=== PATIENT | female | born 1975 | race Caucasian/White ===

== ENCOUNTER 2016-08-01 19:29 | Emergency (ER) | payer OTHER ==
[~2016-08-01] VITALS: Ht 167.6 cm; Wt 109.1 kg
[~2016-08-01 19:29] MED LIST: ATOM40 PO; CITA20TA9 PO; DIVA500T52 PO; LURA40 PO; MACR100 PO; OXYB5 PO; PROP10 PO
[2016-08-01] MEDS ORDERED: HYDROCODONE/ACETAMINOPHEN 5-325 MG TABLET PO ONE (20:15)
[2016-08-01 22:15] VITALS: BP 124/72
== END 2016-08-01 23:03 | disposition home or self-care (01) ==
LOC: EMS 19:30
DX: M72.2 Plantar fascial fibromatosis (principal); F15.90 Other stimulant use, unspecified, uncomplicated; F17.210 Nicotine dependence, cigarettes, uncomplicated
CPT/HCPCS: 73700; 81025; 99284

== ENCOUNTER 2016-08-06 21:02 | Emergency (ER) | payer OTHER ==
[~2016-08-06] VITALS: Ht 167.6 cm; Wt 80.0 kg
[2016-08-06 22:11] LABS: BASOPHILS % (AUTO) 0.6 % (0.0-2.0); HEMATOCRIT 37.1 % (36-46); HEMOGLOBIN 11.9 g/dL (12.0-16.0); LYMPHOCYTES # (AUTO) 2.3 K/uL (1.0-4.8); LYMPHOCYTES % (AUTO) 40.3 % (22.0-44.0); MEAN CORPUSCULAR HEMOGLOBIN 30.6 pg (26.0-34.0); MEAN CORPUSCULAR HGB CONC 32.2 G/dL (31.0-37.0); MEAN CORPUSCULAR VOLUME 95 fL (80-100); MONOCYTES # (AUTO) 0.5 K/uL (0.1-1.0); MONOCYTES % (AUTO) 8.4 % (2.0-9.0); NEUTROPHILS # (AUTO) 2.7 K/uL (1.8-7.7); NEUTROPHILS % (AUTO) 47.7 % (40.0-70.0); PLATELET COUNT (AUTO) 260 K/uL (150-450); RED CELL DISTRIBUTION WIDTH 14.5 % (11.5-14.5); WHITE BLOOD COUNT (AUTO) 5.7 K/uL (4.5-11.0)
[2016-08-06 22:22] LABS: ANION GAP 7 mmol/L (8-16); CALCIUM, TOTAL 8.9 mg/dL (8.8-10.5); CARBON DIOXIDE 30 mmol/L (22-29); CHLORIDE 104 mmol/L (98-107); CREATININE 0.85 mg/dL (0.60-1.30); GLOMERULAR FILTR. RATE CALC > 60 mL/min (>60); POTASSIUM 4.3 mmol/L (3.5-5.1); SODIUM SERUM 141 mmol/L (136-145); UREA NITROGEN, BLOOD 10 mg/dL (7-18)
[2016-08-06 22:27] LABS: ALANINE AMINOTRANSFERASE 28 U/L (12-78); ALBUMIN 3.2 g/dL (3.4-5.0); ASPARTATE AMINOTRANSFERASE 22 U/L (15-37); BILIRUBIN,TOTAL 0.2 mg/dL (0.1-1.0); TOTAL PROTEIN, SERUM 7.5 g/dL (6.4-8.2)
[2016-08-07 00:13] LABS: APPEARANCE,URINE CLEAR (CLEAR); GLUCOSE, URINE (UA) NEGATIVE (NEGATIVE); KETONES,URINE NEGATIVE (NEGATIVE); LEUKOCYTE ESTERASE ,URINE MODERATE (NEGATIVE); OCCULT BLOOD,URINE NEGATIVE (NEGATIVE); PROTEIN,URINE NEGATIVE (NEGATIVE)
[2016-08-07 00:14] LABS: ADD UA MICROSCOPIC YES
[2016-08-07 00:35] LABS: RBC,URINE 0-2 /HPF (0-2); SQUAMOUS EPITHELIAL CELL,UR Few /LPF (None Seen)
[2016-08-07 02:28] VITALS: BP 127/73
== END 2016-08-07 02:37 | disposition home or self-care (01) ==
LOC: EMS 21:04
DX: N39.0 Urinary tract infection, site not specified (principal); F17.210 Nicotine dependence, cigarettes, uncomplicated; F19.90 Other psychoactive substance use, unspecified, uncomplicated
CPT/HCPCS: 87086; 99284

== ENCOUNTER 2016-09-05 20:53 | Emergency (ER) | payer OTHER ==
[~2016-09-05] VITALS: Ht 175.3 cm; Wt 100.0 kg
[2016-09-05] MEDS ORDERED: SODIUM CHLORIDE 0.9% 1,000 ML IV ONE (21:45)
[2016-09-05] MEDS ORDERED: HYDROmorphone 2 MG/ML SYRINGE IVP ONE (21:45)
[2016-09-05] MEDS ORDERED: ONDANSETRON HCL 4 MG/2 ML VIAL IVP ONE (21:45)
[2016-09-05] MEDS ORDERED: BARIUM SULFATE 0.1% SUSPENSION 450 ML BOTTLE PO ONE (21:45)
[2016-09-05 21:51] LABS: CREATININE 1.13 mg/dL (0.60-1.30); POTASSIUM 3.9 mmol/L (3.5-5.1)
[2016-09-05 21:52] LABS: BASOPHILS % (AUTO) 0.2 % (0.0-2.0); EOSINOPHILS % (AUTO) 2.5 % (1.0-6.0); HEMATOCRIT 38.9 % (36-46); HEMOGLOBIN 12.5 g/dL (12.0-16.0); LYMPHOCYTES # (AUTO) 2.5 K/uL (1.0-4.8); LYMPHOCYTES % (AUTO) 33.4 % (22.0-44.0); MEAN CORPUSCULAR HEMOGLOBIN 30.2 pg (26.0-34.0); MEAN CORPUSCULAR VOLUME 94 fL (80-100); MONOCYTES # (AUTO) 0.7 K/uL (0.1-1.0); MONOCYTES % (AUTO) 9.7 % (2.0-9.0); NEUTROPHILS # (AUTO) 4.1 K/uL (1.8-7.7); NEUTROPHILS % (AUTO) 54.2 % (40.0-70.0); PLATELET COUNT (AUTO) 306 K/uL (150-450); RED BLOOD CELL COUNT(AUTO) 4.13 MIL/uL (4.00-5.20); RED CELL DISTRIBUTION WIDTH 14.4 % (11.5-14.5); WHITE BLOOD COUNT (AUTO) 7.5 K/uL (4.5-11.0)
[2016-09-05 21:56] LABS: ALBUMIN 3.4 g/dL (3.4-5.0); BILIRUBIN,TOTAL 0.2 mg/dL (0.1-1.0)
[2016-09-05 22:34] LABS: APPEARANCE,URINE CLEAR (CLEAR); GLUCOSE, URINE (UA) NEGATIVE (NEGATIVE); KETONES,URINE NEGATIVE (NEGATIVE); LEUKOCYTE ESTERASE ,URINE MODERATE (NEGATIVE); OCCULT BLOOD,URINE MODERATE (NEGATIVE); PROTEIN,URINE NEGATIVE (NEGATIVE)
[2016-09-05 22:43] LABS: ADD UA MICROSCOPIC YES
[2016-09-05 22:56] LABS: SQUAMOUS EPITHELIAL CELL,UR Few /LPF (None Seen)
[2016-09-05] MEDS ORDERED: DiphenhydrAMINE HCL 50 MG/ML VIAL IVP ONE (23:00)
[2016-09-05] MEDS ORDERED: IOVERSOL 350 MG/ML 100 ML VIAL ONE (23:15)
[2016-09-05] MEDS ORDERED: SODIUM CHLORIDE 0.9% 100 ML ONE (23:16)
[2016-09-06 02:45] VITALS: BP 111/69
== END 2016-09-06 03:13 | disposition home or self-care (01) ==
LOC: EMS 20:54
DX: K29.70 Gastritis, unspecified, without bleeding (principal); F15.90 Other stimulant use, unspecified, uncomplicated; F17.210 Nicotine dependence, cigarettes, uncomplicated
CPT/HCPCS: 36415; 71010; 74177; 80053; 81001; 83690; 84484; 84703; 85025; 87086; 93005; 96361; 96374; 96375; 99285; 99406; J1170; J1200; J2405; J7030; J7050; Q9967

== ENCOUNTER 2016-10-18 20:28 | Emergency (ER) | payer OTHER ==
[~2016-10-18] VITALS: Ht 175.3 cm; Wt 113.6 kg
[~2016-10-18 20:28] MED LIST changes: -MACR100 PO
[2016-10-18] MEDS ORDERED: TAMS0.4C32 PO (20:39)
[2016-10-18] MEDS ORDERED: DIPH50 PO (20:39)
[2016-10-18] MEDS ORDERED: GABA-531 PO (20:39)
[2016-10-18] MEDS ORDERED: METOCLOPRAMIDE HCL 5 MG/ML 2 ML VIAL IVP ONE (22:30)
[2016-10-18] MEDS ORDERED: SODIUM CHLORIDE 0.9% 1,000 ML IV ONE (22:30)
[2016-10-18] MEDS ORDERED: KETOROLAC TROMETHAMINE 30 MG/ML VIAL IVP ONE (22:30)
[2016-10-18 22:46] LABS: BASOPHILS # (AUTO) 0.03 K/uL (0.00-0.20); BASOPHILS % (AUTO) 0.4 % (0.0-2.0); EOSINOPHILS # (AUTO) 0.15 K/uL (0.00-0.70); EOSINOPHILS % (AUTO) 2.25 % (1.0-6.0); HEMATOCRIT 38.6 % (36-46); HEMOGLOBIN 12.8 g/dL (12.0-16.0); LYMPHOCYTES # (AUTO) 2.2 K/uL (1.0-4.8); LYMPHOCYTES % (AUTO) 32.2 % (22.0-44.0); MEAN CORPUSCULAR HEMOGLOBIN 31.3 pg (26.0-34.0); MEAN CORPUSCULAR HGB CONC 33.2 G/dL (31.0-37.0); MEAN CORPUSCULAR VOLUME 94 fL (80-100); MONOCYTES # (AUTO) 0.6 K/uL (0.1-1.0); MONOCYTES % (AUTO) 8.6 % (2.0-9.0); NEUTROPHILS # (AUTO) 3.8 K/uL (1.8-7.7); NEUTROPHILS % (AUTO) 56.5 % (40.0-70.0); PLATELET COUNT (AUTO) 224 K/uL (150-450); RED BLOOD CELL COUNT(AUTO) 4.09 MIL/uL (4.00-5.20); RED CELL DISTRIBUTION WIDTH 14.4 % (11.5-14.5); WHITE BLOOD COUNT (AUTO) 6.7 K/uL (4.5-11.0)
[2016-10-18 22:56] LABS: ANION GAP 7 mmol/L (8-16); CALCIUM, TOTAL 8.8 mg/dL (8.8-10.5); CARBON DIOXIDE 27 mmol/L (22-29); CHLORIDE 103 mmol/L (98-107); CREATININE 0.95 mg/dL (0.60-1.30); GLOMERULAR FILTR. RATE CALC > 60 mL/min (>60); POTASSIUM 4.9 mmol/L (3.5-5.1); SODIUM SERUM 137 mmol/L (136-145); UREA NITROGEN, BLOOD 13 mg/dL (7-18)
[2016-10-18 23:02] LABS: VALPROIC ACID 49 mcg/mL (50-100)
[2016-10-18 23:09] LABS: APPEARANCE,URINE CLOUDY (CLEAR); GLUCOSE, URINE (UA) NEGATIVE (NEGATIVE); KETONES,URINE NEGATIVE (NEGATIVE); LEUKOCYTE ESTERASE ,URINE LARGE (NEGATIVE); OCCULT BLOOD,URINE TRACE (NEGATIVE); PH,URINE 7.5 (5.0-8.0); PROTEIN,URINE NEGATIVE (NEGATIVE)
[2016-10-18 23:11] LABS: ADD UA MICROSCOPIC YES
[2016-10-18 23:26] LABS: SQUAMOUS EPITHELIAL CELL,UR Many /LPF (None Seen)
[2016-10-18 23:27] LABS: RBC,URINE 0-2 /HPF (0-2)
[2016-10-18 23:43] VITALS: BP 120/77
== END 2016-10-18 23:58 | disposition home or self-care (01) ==
LOC: EMS 20:30
DX: G43.909 Migraine, unspecified, not intractable, without status migrainosus (principal); J02.9 Acute pharyngitis, unspecified; F17.210 Nicotine dependence, cigarettes, uncomplicated; Z87.442 Personal history of urinary calculi
CPT/HCPCS: 36415; 80048; 80164; 81001; 85025; 87086; 96361; 96374; 96375; 99284; 99406; J1885; J2765; J7030

== ENCOUNTER 2017-01-13 23:38 | Emergency (ER) | payer OTHER ==
[~2017-01-13] VITALS: Ht 175.3 cm; Wt 112.0 kg
[~2017-01-13 23:38] MED LIST changes: -ATOM40 PO; -CITA20TA9 PO; -OXYB5 PO; -PROP10 PO; +PROP10TA73 PO; +TAMS0.4C32 PO
[2017-01-14 00:35] LABS: BASOPHILS % (AUTO) 0.1 % (0.0-2.0); HEMATOCRIT 35.5 % (36-46); HEMOGLOBIN 11.8 g/dL (12.0-16.0); LYMPHOCYTES # (AUTO) 2.4 K/uL (1.0-4.8); LYMPHOCYTES % (AUTO) 37.3 % (22.0-44.0); MEAN CORPUSCULAR HEMOGLOBIN 31.3 pg (26.0-34.0); MEAN CORPUSCULAR HGB CONC 33.3 G/dL (31.0-37.0); MEAN CORPUSCULAR VOLUME 94 fL (80-100); MONOCYTES # (AUTO) 0.6 K/uL (0.1-1.0); MONOCYTES % (AUTO) 9.9 % (2.0-9.0); NEUTROPHILS # (AUTO) 3.3 K/uL (1.8-7.7); NEUTROPHILS % (AUTO) 50.7 % (40.0-70.0); PLATELET COUNT (AUTO) 262 K/uL (150-450); RED BLOOD CELL COUNT(AUTO) 3.77 MIL/uL (4.00-5.20); RED CELL DISTRIBUTION WIDTH 14.9 % (11.5-14.5); WHITE BLOOD COUNT (AUTO) 6.5 K/uL (4.5-11.0)
[2017-01-14 00:40] LABS: ANION GAP 6 mmol/L (8-16); CALCIUM, TOTAL 8.7 mg/dL (8.8-10.5); CARBON DIOXIDE 31 mmol/L (22-29); CHLORIDE 104 mmol/L (98-107); CREATININE 0.97 mg/dL (0.60-1.30); GLOMERULAR FILTR. RATE CALC > 60 mL/min (>60); POTASSIUM 3.8 mmol/L (3.5-5.1); SODIUM SERUM 141 mmol/L (136-145); UREA NITROGEN, BLOOD 12 mg/dL (7-18)
[2017-01-14 00:45] LABS: ALANINE AMINOTRANSFERASE 18 U/L (12-78); ALBUMIN 3.2 g/dL (3.4-5.0); ASPARTATE AMINOTRANSFERASE 14 U/L (15-37); BILIRUBIN,TOTAL 0.1 mg/dL (0.1-1.0); TOTAL PROTEIN, SERUM 7.3 g/dL (6.4-8.2)
[2017-01-14 00:54] LABS: APPEARANCE,URINE CLOUDY (CLEAR); GLUCOSE, URINE (UA) NEGATIVE (NEGATIVE); KETONES,URINE NEGATIVE (NEGATIVE); LEUKOCYTE ESTERASE ,URINE MODERATE (NEGATIVE); OCCULT BLOOD,URINE TRACE (NEGATIVE); PH,URINE 6.5 (5.0-8.0); PROTEIN,URINE NEGATIVE (NEGATIVE)
[2017-01-14 00:57] LABS: ADD UA MICROSCOPIC YES
[2017-01-14 01:31] LABS: SQUAMOUS EPITHELIAL CELL,UR Few /LPF (None Seen)
[2017-01-14 02:08] VITALS: BP 120/84
== END 2017-01-14 02:15 | disposition home or self-care (01) ==
LOC: EMS 23:39
DX: N39.0 Urinary tract infection, site not specified (principal); G43.909 Migraine, unspecified, not intractable, without status migrainosus; F17.210 Nicotine dependence, cigarettes, uncomplicated
CPT/HCPCS: 87086; 99284

== ENCOUNTER 2017-02-27 16:41 | Inpatient (IN) | payer MEDICARE, MEDICAID ==
[~2017-02-27] VITALS: Ht 175.3 cm; Wt 106.6 kg
[2017-02-27] MEDS ORDERED: SERT50TA12 PO (17:14)
[2017-02-27] MEDS ORDERED: OXYB5 PO (17:14)
[2017-02-27 17:36] LABS: BASOPHILS % (AUTO) 0.1 % (0.0-2.0); EOSINOPHILS % (AUTO) 2.3 % (1.0-6.0); LYMPHOCYTES # (AUTO) 1.7 K/uL (1.0-4.8); LYMPHOCYTES % (AUTO) 27.4 % (22.0-44.0); MEAN CORPUSCULAR HEMOGLOBIN 31.7 pg (26.0-34.0); MEAN CORPUSCULAR HGB CONC 34.1 G/dL (31.0-37.0); MEAN CORPUSCULAR VOLUME 93 fL (80-100); MONOCYTES # (AUTO) 0.5 K/uL (0.1-1.0); MONOCYTES % (AUTO) 7.4 % (2.0-9.0); NEUTROPHILS # (AUTO) 3.9 K/uL (1.8-7.7); NEUTROPHILS % (AUTO) 62.8 % (40.0-70.0); PLATELET COUNT (AUTO) 249 K/uL (150-450); RED BLOOD CELL COUNT(AUTO) 4.09 MIL/uL (4.00-5.20); RED CELL DISTRIBUTION WIDTH 14.8 % (11.5-14.5); WHITE BLOOD COUNT (AUTO) 6.2 K/uL (4.5-11.0)
[2017-02-27 18:04] LABS: ANION GAP 4 mmol/L (8-16); CALCIUM, TOTAL 9.6 mg/dL (8.8-10.5); CARBON DIOXIDE 29 mmol/L (22-29); CHLORIDE 102 mmol/L (98-107); CREATININE 1.01 mg/dL (0.60-1.30); GLOMERULAR FILTR. RATE CALC 60 mL/min (>60); POTASSIUM 4.3 mmol/L (3.5-5.1); SODIUM SERUM 135 mmol/L (136-145); UREA NITROGEN, BLOOD 13 mg/dL (7-18)
[2017-02-27 18:10] LABS: ALANINE AMINOTRANSFERASE 23 U/L (12-78); ALBUMIN 3.3 g/dL (3.4-5.0); ASPARTATE AMINOTRANSFERASE 21 U/L (15-37); BILIRUBIN,TOTAL 0.2 mg/dL (0.1-1.0); TOTAL PROTEIN, SERUM 7.5 g/dL (6.4-8.2)
[2017-02-27] MEDS ORDERED: ZOLPIDEM TARTRATE 10 MG TABLET PO PRN (18:45)
[2017-02-27] MEDS ORDERED: HALOPERIDOL 5 MG TABLET PO PRN (18:45)
[2017-02-27] MEDS ORDERED: LORazepam 2 MG TABLET PO PRN (18:45)
[2017-02-27] MEDS ORDERED: LURA80 PO (18:51)
[2017-02-27 21:12] VITALS: BP 140/90
[2017-02-28] MEDS: TAMSULOSIN HCL 0.4 MG CAPSULE PO SCH ×3 (09:00→17:00)
[2017-02-28] MEDS: OXYBUTYNIN CHLORIDE 5 MG TABLET PO SCH ×3 (09:00→17:00)
[2017-02-28] MEDS: RisperiDONE 2 MG TABLET PO SCH ×3 (09:00→17:00)
[2017-02-28] MEDS: PROPRANOLOL HCL 10 MG TABLET PO SCH ×4 (09:00→17:00)
[2017-02-28] MEDS: SERTRALINE HCL 50 MG TABLET PO SCH (10:28)
[2017-02-28] MEDS: DIVALPROEX SODIUM 500 MG ER TABLET PO SCH (20:51)
[2017-03-01] MEDS: TAMSULOSIN HCL 0.4 MG CAPSULE PO SCH ×2 (10:07→16:35)
[2017-03-01] MEDS: RisperiDONE 2 MG TABLET PO SCH ×2 (10:07→16:35)
[2017-03-01] MEDS: SERTRALINE HCL 50 MG TABLET PO SCH (10:07)
[2017-03-01] MEDS: PROPRANOLOL HCL 10 MG TABLET PO SCH ×3 (10:07→16:36)
[2017-03-01] MEDS: OXYBUTYNIN CHLORIDE 5 MG TABLET PO SCH ×2 (10:07→16:35)
[2017-03-01 10:30] VITALS: BP 106/74
[2017-03-01 17:48] VITALS: BP 121/68
[2017-03-01] MEDS: DIVALPROEX SODIUM 500 MG ER TABLET PO SCH (21:00)
[2017-03-02 09:12] VITALS: BP 117/78
[2017-03-02] MEDS: TAMSULOSIN HCL 0.4 MG CAPSULE PO SCH (09:53)
[2017-03-02] MEDS: OXYBUTYNIN CHLORIDE 5 MG TABLET PO SCH (09:53)
[2017-03-02] MEDS: PROPRANOLOL HCL 10 MG TABLET PO SCH ×2 (09:53→13:45)
[2017-03-02] MEDS: SERTRALINE HCL 50 MG TABLET PO SCH (09:53)
[2017-03-02] MEDS: RisperiDONE 2 MG TABLET PO SCH (09:53)
[2017-03-02] MEDS ORDERED: RISP2 PO (12:08)
== END 2017-03-02 15:40 | disposition home or self-care (01) | DRG 881 ==
LOC: EMS 16:43 → 3EI 19:02
PROVIDERS: ADMIT Psychiatry & Neurology Child & Adolescent Psychiatry; ATTEND Psychiatry & Neurology Child & Adolescent Psychiatry
DX: F32.9 Major depressive disorder, single episode, unspecified (principal); F43.10 Post-traumatic stress disorder, unspecified; F90.9 Attention-deficit hyperactivity disorder, unspecified type; N32.81 Overactive bladder; N39.498 Other specified urinary incontinence; S51.811A Laceration without foreign body of right forearm, initial encounter; Z86.73 Personal history of transient ischemic attack (TIA), and cerebral infarction without residual deficits; Z87.442 Personal history of urinary calculi; Z87.891 Personal history of nicotine dependence; W45.8XXA Other foreign body or object entering through skin, initial encounter; Y93.89 Activity, other specified; Y92.89 Other specified places as the place of occurrence of the external cause; Y99.8 Other external cause status
CPT/HCPCS: 99285; G0480

== ENCOUNTER 2018-01-18 21:58 | Inpatient (IN) | payer MEDICARE, MEDICAID ==
[~2018-01-18] VITALS: Ht 175.3 cm; Wt 91.8 kg
[~2018-01-18 21:58] MED LIST changes: -LURA40 PO; +OXYB5 PO; +RISP2 PO; +SERT50TA12 PO
[2018-01-18 22:57] LABS: BASOPHILS % (AUTO) 0.6 % (0.0-2.0); EOSINOPHILS % (AUTO) 3.1 % (1.0-6.0); HEMATOCRIT 35.1 % (36-46); HEMOGLOBIN 11.6 g/dL (12.0-16.0); LYMPHOCYTES % (AUTO) 42.5 % (22.0-44.0); MEAN CORPUSCULAR HEMOGLOBIN 31.2 pg (26.0-34.0); MEAN CORPUSCULAR HGB CONC 33.2 G/dL (31.0-37.0); MEAN CORPUSCULAR VOLUME 94 fL (80-100); MONOCYTES # (AUTO) 0.7 K/uL (0.1-1.0); MONOCYTES % (AUTO) 9.8 % (2.0-9.0); NEUTROPHILS # (AUTO) 3.1 K/uL (1.8-7.7); PLATELET COUNT (AUTO) 226 K/uL (150-450); RED BLOOD CELL COUNT(AUTO) 3.73 MIL/uL (4.00-5.20); RED CELL DISTRIBUTION WIDTH 14.9 % (11.5-14.5)
[2018-01-18 23:12] LABS: ANION GAP 10 mmol/L (8-16); CALCIUM, TOTAL 8.7 mg/dL (8.8-10.5); CARBON DIOXIDE 27 mmol/L (22-29); CHLORIDE 104 mmol/L (98-107); CREATININE 0.98 mg/dL (0.60-1.30); GLOMERULAR FILTR. RATE CALC > 60 mL/min (>60); GLUCOSE,RANDOM 92 mg/dL (70-110); POTASSIUM 3.8 mmol/L (3.5-5.1); SODIUM SERUM 141 mmol/L (136-145); UREA NITROGEN, BLOOD 13 mg/dL (7-18)
[2018-01-18 23:19] LABS: ALANINE AMINOTRANSFERASE 14 U/L (12-78); ALKALINE PHOSPHATASE 118 U/L (46-116); ASPARTATE AMINOTRANSFERASE 16 U/L (15-37); BILIRUBIN,TOTAL 0.2 mg/dL (0.1-1.0); TOTAL PROTEIN, SERUM 7.3 g/dL (6.4-8.2)
[2018-01-18] MEDS ORDERED: HALOPERIDOL 5 MG TABLET PO PRN (23:45)
[2018-01-18] MEDS ORDERED: ZOLPIDEM TARTRATE 10 MG TABLET PO PRN (23:45)
[2018-01-18] MEDS ORDERED: LORazepam 2 MG TABLET PO PRN (23:45)
[2018-01-19 00:57] LABS: AMPHET/METH SCREEN,URINE NEGATIVE (NEGATIVE); BARBITURATE SCREEN, URINE NEGATIVE (NEGATIVE); BENZODIAZEPINES SCREEN,URINE NEGATIVE (NEGATIVE); CANNABINOID SCREEN,URINE NEGATIVE (NEGATIVE); COCAINE SCREEN,URINE NEGATIVE (NEGATIVE); METHADONE SCREEN, URINE NEGATIVE (NEGATIVE); OPIATE SCREEN,URINE NEGATIVE (NEGATIVE)
[2018-01-19 01:04] LABS: PHENCYCLIDINE SCREEN,URINE NEGATIVE (NEGATIVE)
[2018-01-19 01:58] VITALS: BP 146/92
[2018-01-19] MEDS ORDERED: PNEUMOCOCCAL VACCINE POLYVALENT 0.5 ML VIAL [PPSV23] IM ONE (02:15)
[2018-01-19] MEDS: ARIPiprazole 10 MG TABLET PO SCH (12:37)
[2018-01-19] MEDS: SERTRALINE HCL 50 MG TABLET PO SCH (12:37)
[2018-01-19] MEDS ORDERED: ONDANSETRON HCL 4 MG TABLET PO PRN (14:30)
[2018-01-19] MEDS ORDERED: CloNIDine HCL 0.1 MG TABLET PO PRN (14:30)
[2018-01-19] MEDS ORDERED: DOCUSATE SODIUM 100 MG CAPSULE PO PRN (14:30)
[2018-01-19] MEDS ORDERED: ALBUTEROL SULFATE HFA 90 MCG/PUFF 8 GM INHALER IH PRN (14:30)
[2018-01-19] MEDS ORDERED: PETROLATUM,WHITE 71 GM JELLY TP PRN (14:30)
[2018-01-19] MEDS ORDERED: MAG HYDROX/AL HYDROX/SIMETH ES 30 ML SUSPENSION UDCUP PO PRN (14:30)
[2018-01-19] MEDS ORDERED: ACETAMINOPHEN 325 MG TABLET PO PRN (14:30)
[2018-01-19] MEDS ORDERED: NICOTINE 14 MG/24 HOUR PATCH TD PRN (14:30)
[2018-01-19] MEDS ORDERED: MAGNESIUM HYDROXIDE SUSPENSION 30 ML UDCUP PO PRN (14:30)
[2018-01-19] MEDS ORDERED: GuaiFENesin/D-METHORPHAN [SUGAR-FREE] 200-20MG/10 ML SYRUP UDCUP PO PRN (14:30)
[2018-01-19] MEDS ORDERED: LOPERAMIDE HCL 2 MG CAPSULE PO PRN (14:30)
[2018-01-19] MEDS ORDERED: IBUPROFEN 400 MG TABLET PO PRN (14:30)
[2018-01-19 17:00] VITALS: BP 143/92
[2018-01-19] MEDS: OXYBUTYNIN CHLORIDE 5 MG TABLET PO SCH (17:35)
[2018-01-19] MEDS: TAMSULOSIN HCL 0.4 MG CAPSULE PO SCH (17:35)
[2018-01-19] MEDS: PROPRANOLOL HCL 10 MG TABLET PO SCH (17:35)
[2018-01-19] MEDS: DIVALPROEX SODIUM 500 MG ER TABLET PO SCH (21:03)
[2018-01-20 08:05] VITALS: BP 150/109
[2018-01-20] MEDS: OXYBUTYNIN CHLORIDE 5 MG TABLET PO SCH ×2 (08:24→16:58)
[2018-01-20] MEDS: TAMSULOSIN HCL 0.4 MG CAPSULE PO SCH ×2 (08:24→16:59)
[2018-01-20] MEDS: SERTRALINE HCL 50 MG TABLET PO SCH (08:24)
[2018-01-20] MEDS: PROPRANOLOL HCL 10 MG TABLET PO SCH ×3 (08:24→16:59)
[2018-01-20] MEDS: ARIPiprazole 10 MG TABLET PO SCH (08:24)
[2018-01-20 10:30] VITALS: BP 114/71
[2018-01-20 17:54] VITALS: BP 152/99
[2018-01-20] MEDS: DIVALPROEX SODIUM 500 MG ER TABLET PO SCH (20:36)
[2018-01-21 08:00] VITALS: BP 156/108
[2018-01-21] MEDS: SERTRALINE HCL 50 MG TABLET PO SCH (08:31)
[2018-01-21] MEDS: OXYBUTYNIN CHLORIDE 5 MG TABLET PO SCH ×2 (08:31→17:18)
[2018-01-21] MEDS: PROPRANOLOL HCL 10 MG TABLET PO SCH ×3 (08:32→17:18)
[2018-01-21] MEDS: TAMSULOSIN HCL 0.4 MG CAPSULE PO SCH ×2 (08:32→17:18)
[2018-01-21] MEDS: ARIPiprazole 10 MG TABLET PO SCH (08:32)
[2018-01-21] MEDS: DIVALPROEX SODIUM 500 MG ER TABLET PO SCH (20:05)
[2018-01-21 21:01] VITALS: BP 140/82
[2018-01-22 08:00] VITALS: BP 123/84
[2018-01-22] MEDS: TAMSULOSIN HCL 0.4 MG CAPSULE PO SCH ×2 (08:58→16:55)
[2018-01-22] MEDS: ARIPiprazole 10 MG TABLET PO SCH (08:58)
[2018-01-22] MEDS: OXYBUTYNIN CHLORIDE 5 MG TABLET PO SCH ×2 (08:58→16:55)
[2018-01-22] MEDS: PROPRANOLOL HCL 10 MG TABLET PO SCH ×3 (08:58→16:55)
[2018-01-22] MEDS: SERTRALINE HCL 50 MG TABLET PO SCH (08:59)
[2018-01-22 13:16] VITALS: BP 102/52
[2018-01-22 16:00] VITALS: BP 125/87
[2018-01-22] MEDS: DIVALPROEX SODIUM 500 MG ER TABLET PO SCH (20:27)
[2018-01-23] MEDS: SERTRALINE HCL 50 MG TABLET PO SCH (08:49)
[2018-01-23] MEDS: PROPRANOLOL HCL 10 MG TABLET PO SCH ×3 (08:49→17:00)
[2018-01-23] MEDS: TAMSULOSIN HCL 0.4 MG CAPSULE PO SCH ×2 (08:49→16:56)
[2018-01-23] MEDS: ARIPiprazole 10 MG TABLET PO SCH (08:49)
[2018-01-23] MEDS: OXYBUTYNIN CHLORIDE 5 MG TABLET PO SCH ×2 (08:49→16:56)
[2018-01-23 09:13] VITALS: BP 161/100
[2018-01-23] MEDS ORDERED: SERTRALINE HCL 50 MG TABLET PO ONE (13:00)
[2018-01-23 16:38] VITALS: BP 125/76
[2018-01-23] MEDS: DIVALPROEX SODIUM 500 MG ER TABLET PO SCH (20:02)
[2018-01-24] MEDS: TAMSULOSIN HCL 0.4 MG CAPSULE PO SCH ×2 (08:28→16:09)
[2018-01-24] MEDS: PROPRANOLOL HCL 10 MG TABLET PO SCH ×3 (08:29→16:09)
[2018-01-24] MEDS: ARIPiprazole 10 MG TABLET PO SCH (08:29)
[2018-01-24] MEDS: OXYBUTYNIN CHLORIDE 5 MG TABLET PO SCH ×2 (08:29→16:09)
[2018-01-24] MEDS ORDERED: SERTRALINE HCL 100 MG TABLET PO SCH (09:00)
[2018-01-24 09:18] VITALS: BP 149/88
[2018-01-24] MEDS ORDERED: ARIP10TA8 PO (15:39)
[2018-01-24] MEDS ORDERED: SERT100T12 PO (15:39)
[2018-01-24] MEDS ORDERED: DIVA500T52 PO (15:39)
[2018-01-24 16:10] VITALS: BP 130/89
== END 2018-01-24 17:45 | disposition home or self-care (01) | DRG 885 ==
LOC: EMS 21:59 → 3EX 01-19 01:25
DX: F25.1 Schizoaffective disorder, depressive type (principal); R45.851 Suicidal ideations; F43.10 Post-traumatic stress disorder, unspecified; Z87.442 Personal history of urinary calculi; F17.210 Nicotine dependence, cigarettes, uncomplicated; J44.9 Chronic obstructive pulmonary disease, unspecified; I10 Essential (primary) hypertension; G43.909 Migraine, unspecified, not intractable, without status migrainosus; N28.9 Disorder of kidney and ureter, unspecified; D64.9 Anemia, unspecified; Z71.6 Tobacco abuse counseling; R32 Unspecified urinary incontinence; Z91.5 Personal history of self-harm; Z79.899 Other long term (current) drug therapy; F90.9 Attention-deficit hyperactivity disorder, unspecified type; F41.9 Anxiety disorder, unspecified; Z28.21 Immunization not carried out because of patient refusal
CPT/HCPCS: 99285; G0480